=== PATIENT | female | born 1950 | race African-American/Black ===

== ENCOUNTER 2018-12-15 07:04 | Emergency (ER) | payer MEDICARE, MEDICAID ==
[~2018-12-15] VITALS: Ht 181.6 cm; Wt 79.0 kg
[2018-12-15] MEDS ORDERED: PRED10 PO (07:24)
[2018-12-15] MEDS ORDERED: ETAN25I SQ (07:24)
[2018-12-15] MEDS ORDERED: PERCT10 PO (07:24)
[2018-12-15] MEDS ORDERED: AMLO5TAB9 PO (07:24)
[2018-12-15] MEDS ORDERED: ALPR0.5T8 PO (07:24)
[2018-12-15] MEDS ORDERED: TIMO.25OS OP (07:24)
[2018-12-15] MEDS ORDERED: ACETAMINOPHEN 500 MG TABLET PO ONE (08:30)
[2018-12-15 10:30] VITALS: BP 131/84
== END 2018-12-15 11:00 | disposition home or self-care (01) ==
LOC: EMS 07:04
DX: S16.1XXA Strain of muscle, fascia and tendon at neck level, initial encounter (principal); S80.211A Abrasion, right knee, initial encounter; I10 Essential (primary) hypertension; M19.90 Unspecified osteoarthritis, unspecified site; F17.210 Nicotine dependence, cigarettes, uncomplicated; F12.90 Cannabis use, unspecified, uncomplicated; F41.9 Anxiety disorder, unspecified; Z86.73 Personal history of transient ischemic attack (TIA), and cerebral infarction without residual deficits; Z79.899 Other long term (current) drug therapy; W01.0XXA Fall on same level from slipping, tripping and stumbling without subsequent striking against object, initial encounter; Y93.02 Activity, running; Y92.89 Other specified places as the place of occurrence of the external cause; Y99.8 Other external cause status
CPT/HCPCS: 70450; 72125